=== PATIENT | female | born 1960 | race Caucasian/White ===

== ENCOUNTER → 2016-10-23 | Outpatient (CLI) | payer OTHER ==
[~2016-10-23] MED LIST: ASP81TEC PO; ASPI-999 PO; BENZ-13 PO; CETI10TA17 PO; CIPR500T4 PO; CLNZ.5T PO; CLON0.5T3 PO; CLON1TAB3 PO; CLON1TAB36 PO; CPR500T PO; D ME PO; DIPH25TA31 PO; DIVA250T2 PO; DULA0.75 SQ; FAMO-119 PO; FENO54TA PO; FENO54TA5 PO; FLUO20CA42 PO; FLX10C PO; Fluoxetine Hcl PO; GABA-490 PO; GABA800T PO; GABA800T2 PO; GBPN100C PO; GLYC30DR OU; INSASP10V SC; INSU100I14 SQ; INSU100V5 SC; LEVIMIR SQ; LIRA0.6P3 SQ; LOPE2CAP29 PO; MAGN250T PO; METF500T8 PO; METO25TA2 PO; MIRA25TA PO; MTP50T PO; MULT-974 PO; OMEP20CA12 PO; PANT40TA2 PO; PRAM0.5T4 PO; PRAM1TAB2 PO; PREG50C PO; Patients Own Medication PO; RABE20TA PO; ROPI0.25 PO; ROSU10TA12 PO; ROSU20TA14 PO; Rosuvastatin Calcium PO; SUCR1TAB PO; TELM40T PO; TRAM50TA2 PO
--- OUTSIDE RECORDS SUMMARY | 2016-10-23 10:13 | XMS REPORT ---
Author Author LACY VILLEGAS Organization [employer] Address Unknown Phone Unavailable Care Team Providers Care Special Tax Auditor Name Role Phone LACY VILLEGAS CP Unavailable Allergies No Known Allergies Problems Problem Type Condition Code Onset Dates Condition Status Problem Essential (primary) hypertension I10 Active Problem Epigastric pain R10.13 Active Problem Epigastric abdominal pain R10.13 Active Problem Influenza vaccination declined Z28.21 Active Problem Gastroenteritis and colitis, viral A08.4 Active Problem Anhedonia R45.84 Active Problem Ventral hernia without obstruction or gangrene K43.9 Active Problem Seizure disorder G40.909 Active Problem 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
--- NOTE | 2016-10-23 17:18 | Diagnostic Imaging Report ---
Bilateral screening mammogram. The current study was also evaluated with a Computer Aided Detection (CAD) system. INDICATION: Screening. No current complaints stated on the questionnaire. COMPARISON: 10/11/2015. FINDINGS: The breasts are composed of heterogeneously dense parenchyma which may decrease mammographic sensitivity. There are occasional benign-appearing calcifications. Allowing for technique and positional differences, no suspicious change is seen. IMPRESSION: Dense breasts with no definite change. ACR BI-RADS Category 2: Benign findings. Result letter will be mailed to the patient. Note: At least 10% of breast cancer is not imaged by mammography. Dictated by: Dictated on workstation # [id number]
== END ==
LOC: RAD 10:10
PROVIDERS: ATTEND Nurse Practitioner Family
DX: Z12.31 Encounter for screening mammogram for malignant neoplasm of breast (principal)
CPT/HCPCS: 77067

== ENCOUNTER 2017-01-19 09:04 | Emergency (ER) | payer SELFPAY ==
[~2017-01-19] VITALS: Ht 147.3 cm; Wt 71.2 kg
[~2017-01-19 09:04] MED LIST changes: -CIPR500T4 PO
[2017-01-19] MEDS ORDERED: NS IV 1000 ML 1,000 ML IV ONE (09:42)
[2017-01-19] MEDS ORDERED: ONDANSETRON 4 MG/2 ML (SDV) Z0FRAN ONE (09:45)
[2017-01-19] MEDS ORDERED: FAMOTIDINE 20MG/2ML IV (PEPCID) ONE (09:46)
[2017-01-19] MEDS ORDERED: FAMOTIDINE 20MG/2ML IV (PEPCID) IV STA (09:47)
[2017-01-19] MEDS ORDERED: fentaNYL INJECTION 100 MCG/2 ML AMP ONE (09:47)
[2017-01-19] MEDS ORDERED: fentaNYL INJECTION 100 MCG/2 ML AMP IVP STA ×2 (09:47→11:30)
--- NOTE | 2017-01-19 09:58 | ED Abdominal Pain ---
General Chief Complaint: Abdominal/GI Problems Stated Complaint: ABD PAIN Nursing Triage Note: PT CO OF ABD PAIN FOR APPROX 1 MONTH, PT STATES HAS PAIN FOR A MONTH AND HAS SEEN DR REARDON FOR ABD PAIN, Sepsis Screen: No Definite Risk Source of Information: Patient Exam Limitations: No Limitations History of Present Illness Time Seen By Provider: 09:30 Timing/Duration: Intermittent, Other (one month) Severity/Quality: Moderate Location: [facility] Radiation: No Radiation Activities at Onset: None Modifying Factors: Worsens With Eating, Worsens With Movement, Worsens With Palpation, Worsens With Urinating Associated Symptoms: No Back Pain, No Chest Pain, No Fever/Chills, Nausea/ Vomiting, Swelling/Mass in Abdomen, No Weakness Allergies and Home Medications Allergies Coded Allergies: Penicillins (Verified Adverse Reaction, Mild, 12/31/12) Home Medications Aspirin 81 Mg Tab.chew, 81 MG PO DAILY, (Reported) Divalproex Sodium 250 Mg Tablet.dr, 250 MG PO BID, (Reported) Dulaglutide 0.75 Mg/0.5 Ml Pen.injctr, 0.75 MG SQ EVERY THURSDAY, (Reported) Fenofibrate 54 Mg Tablet, 54 MG PO DAILY, (Reported) Fluoxetine HCl 20 Mg Capsule, 20 MG PO DAILY, (Reported) Gabapentin 800 Mg Tablet, 800 MG PO TID, (Reported) Insulin Aspart 10 Unit/0.1 Ml Susp, 35 UNIT SC TIDAC, (Reported) Insulin Detemir 100 Unit/1 Ml Vial, 80 UNIT SC BID, (Reported) Magnesium 250 Mg Tablet, 250 MG PO BID, (Reported) Metformin Hcl 500 Mg Tab.sr.24h, 1,000 MG PO BID, (Reported) TAKES 2 (500MG) TABLETS Mirabegron 25 Mg Tab.er.24h, 25 MG PO DAILY, (Reported) Multivitamin 1 Each Tablet, 1 EACH PO DAILY, (Reported) Pantoprazole Sodium 40 Mg Tablet.dr, 40 MG PO DAILY, #90 take Protonix 40 mg twice a day by mouth for 2 weeks and then after that take Protonix 40 mg once a day by mouth Prescribed by: MARK BUSBY NWBEHZAD on 02/05/16 1130 Pramipexole Di-HCl 1 Mg Tablet, 1 MG PO HS, (Reported) Sucralfate 1 Gm Tablet, 1 GM PO TIDAC, (Reported) Telmisartan 40 Mg Tab, 40 MG PO DAILY, (Reported) Review of Systems Constitutional: see HPI, No chills, No fever EENTM: No Symptoms Reported Respiratory: No Symptoms Reported Cardiovascular: No Symptoms Reported Gastrointestinal: Abdominal Pain, Denies Constipated, Denies Diarrhea, Nausea, Denies Vomiting Genitourinary: No Symptoms Reported Musculoskeletal: no symptoms reported Skin: no symptoms reported All Other Systems Reviewed Negative Unless Noted: Yes Past Miqmvsz-Sckxel-Tbqpgh Hx Patient Social History Alcohol Use: Denies Use Recreational Drug Use: No Smoking Status: Never a Smoker Recent Foreign Travel: No Contact w/Someone Who Travel: No Recent Infectious Disease Expo: No Immunizations Up To Date Tetanus Booster (TDap): Less than 5yrs PED Vaccines UTD: Yes Date of Pneumonia Vaccine: Nov 26, 2012 Date of Influenza Vaccine: Sep 21, 2012 Seasonal Allergies Seasonal Allergies: No Surgeries HX Surgeries: Yes ( X 2) Respiratory Hx Respiratory Disorders: No Cardiovascular Hx Cardiac Disorders: No Neurological Hx Neurological Disorders: Yes ("HEADACHE SYNDROMES" PER [facility] RECORDS) Reproductive System Hx Reproductive Disorders: Yes (hysterectomy) SENIOR PROGRAM ANALYST History: Hysterectomy Genitourinary Hx Genitourinary Disorders: No Gastrointestinal Hx Gastrointestinal Disorders: No Musculoskeletal Hx Musculoskeletal Disorders: No Endocrine Hx Endocrine Disorders: Yes Endocrine Disorders: Diabetes, Insulin dep HEENT HX ENT Disorders: Yes (wears glasses ) HEENT Disorders: Cataract Cancer Hx Cancer: No Psychosocial Hx Psychiatric Problems: Yes Behavioral Health Disorders: Anxiety, Depression Integumentary HX Skin/Integumentary Disorder: Yes (left axilla boil) Blood Transfusions Hx Blood Disorders: No Reviewed Nursing Assessment Reviewed/Agree w Nursing PMH: Yes Family Medical History Family Medial History: Diabetes mellitus Hypertension Neoplasm Physical Exam Vital Signs VS - Last 72 Hours, by Label 01/19/17 01/19/17 09:10 10:57 Temp 96.9 96.9 Pulse 103 103 Resp 18 18 B/P (MAP) 158/82 Pulse Ox 97 97 Capillary Refill : Less Than 3 Seconds General Appearance: WD/WN, no apparent distress HEENT: PERRL/EOMI, pharynx normal Neck: full range of motion, supple Respiratory: lungs clear, normal breath sounds Cardiovascular: regular rate, rhythm, no murmur Gastrointestinal: non tender, soft Extremities: non-tender, normal inspection Back: normal inspection, no CVA tenderness, no vertebral tenderness Neurologic/Psychiatric: alert, oriented x 3 Skin: normal color, warm/dry Progress/Results/Core Measures Results/Orders Lab Results Laboratory Tests Test 01/19/17 09:30 01/19/17 10:35 Range/Units Urine Color YELLOW Urine Clarity CLEAR Urine pH 6.5 5-9 Urine Specific [place] 1.015 L 1.016-1.022 Urine Protein 1+ H NEGATIVE Urine Glucose (UA) 3+ H NEGATIVE Urine Ketones 1+ H NEGATIVE Urine Nitrite NEGATIVE NEGATIVE Urine Bilirubin NEGATIVE NEGATIVE Urine Urobilinogen NORMAL NORMAL MG/DL Urine Leukocyte Esterase 3+ H NEGATIVE Urine RBC (Auto) NEGATIVE NEGATIVE Urine RBC NONE /HPF Urine WBC 25-50 H /HPF Urine Squamous Epithelial Cells 0-2 /HPF Urine Crystals NONE /LPF Urine Bacteria FEW H /HPF Urine Casts NONE /LPF Urine Mucus NEGATIVE /LPF Urine Culture Indicated YES White Blood Count 12.2 H 4.3-11.0 10^3/uL Red Blood Count 4.52 4.35-5.85 10^6/uL Hemoglobin 11.6 11.5-16.0 G/DL Hematocrit 37 35-52 % Mean Corpuscular Volume 81 80-99 FL Mean Corpuscular Hemoglobin 26 25-34 PG Mean Corpuscular Hemoglobin Concent 32 32-36 G/DL Red Cell Distribution Width 15.1 H 10.0-14.5 % Platelet Count 290 130-400 10^3/uL Mean Platelet Volume 10.9 H 7.4-10.4 FL Neutrophils (%) (Auto) 71 42-75 % Lymphocytes (%) (Auto) 22 12-44 % Monocytes (%) (Auto) 4 0-12 % Eosinophils (%) (Auto) 3 0-10 % Basophils (%) (Auto) 0 0-10 % Neutrophils # (Auto) 8.6 H 1.8-7.8 X 10^3 Lymphocytes # (Auto) 2.7 1.0-4.0 X 10^3 Monocytes # (Auto) 0.5 0.0-1.0 X 10^3 Eosinophils # (Auto) 0.4 H 0.0-0.3 10^3/uL Basophils # (Auto) 0.0 0.0-0.1 10^3/uL Sodium Level 137 135-145 MMOL/L Potassium Level 4.8 3.6-5.0 MMOL/L Chloride Level 104 98-107 MMOL/L Carbon Dioxide Level 22 21-32 MMOL/L Anion Gap 11 5-14 MMOL/L Blood Urea Nitrogen 21 H 7-18 MG/DL Creatinine 0.77 0.60-1.30 MG/DL Estimat Glomerular Filtration Rate > 60 BUN/Creatinine Ratio 27 Glucose Level 210 H 70-105 MG/DL Calcium Level 8.7 8.5-10.1 MG/DL Magnesium Level 1.1 L 1.8-2.4 MG/DL Total Bilirubin 0.2 0.1-1.0 MG/DL Aspartate Amino Transf (AST/SGOT) 13 5-34 U/L Alanine Aminotransferase (ALT/SGPT) 15 0-55 U/L Alkaline Phosphatase 78 40-136 U/L Total Protein 7.8 6.4-8.2 G/DL Albumin 4.0 3.2-4.5 G/DL Amylase Level 47 25-125 U/L Lipase 40 8-78 U/L My Orders Orders - CASSIA GROVER MD Amylase (01/19/17 09:42) Cbc With Automated Diff (01/19/17 09:42) Comprehensive Metabolic Panel (01/19/17 09:42) Lipase (01/19/17 09:42) Magnesium (01/19/17 09:42) Ua Culture If Indicated (01/19/17 09:42) Saline Lock/Iv-Start (01/19/17 09:42) Ns Iv 1000 Ml (Sodium Chloride 0.9%) (01/19/17 09:42) Ondansetron Injection (Zofran Injectio (01/19/17 10:00) Famotidine Injection (Pepcid Injection) (01/19/17 09:47) Fentanyl Injection (Sublimaze Injection (01/19/17 09:47) Ondansetron Injection (Zofran Injectio (01/19/17 09:45) Famotidine Injection (Pepcid Injection) (01/19/17 09:46) Fentanyl Injection (Sublimaze Injection (01/19/17 09:47) Urine Culture (01/19/17 09:30) Ct Abdomen/Pelvis W (01/19/17 11:24) Iohexol Injection (Omnipaque 350 Mg/Ml 1 (01/19/17 11:30) Ns (Ivpb) (Sodium Chloride 0.9% Ivpb Bag (01/19/17 11:30) Fentanyl Injection (Sublimaze Injection (01/19/17 11:30) Medications Given in ED Current Medications Medications Dose Ordered Sig/Cb Route Start Time Stop Time Status Last Admin Dose Admin Iohexol 100 ml ONCE ONCE IV 01/19/17 11:30 01/19/17 11:34 DC 01/19/17 11:39 100 ML Ondansetron HCl 4 mg ONCE ONCE IVP 01/19/17 10:00 01/19/17 10:01 DC 01/19/17 09:52 4 MG Sodium Chloride 100 ml ONCE ONCE IV 01/19/17 11:30 01/19/17 11:34 DC 01/19/17 11:39 80 ML Sodium Chloride 1,000 ml @ 0 mls/hr Q0M ONCE IV 01/19/17 09:42 01/19/17 09:43 DC 01/19/17 09:54 1,000 MLS/HR Vital Signs/I&O Vital Sign - Last 12Hours 01/19/17 01/19/17 09:10 10:57 Temp 96.9 96.9 Pulse 103 103 Resp 18 18 B/P (MAP) 158/82 Pulse Ox 97 97 Blood Pressure Mean: 107 Progress Note : Progress Note Seen and evaluated. IV, labs, UA, normal saline 1 L bolus, fentanyl 50 g IV, Zofran 4 mg IV and Pepcid 20 mg IV ordered. Anticipate CT abdomen and pelvis. Monitor patient. CT scan ordered. Patient required repeat dosing of fentanyl 75 g IV for pain. This did help but her pain. 1215: CT results noted. No acute findings. Overall no significant findings except for question of urinary tract infection. We will treat this. She needs to follow up with her DrJayesh for further evaluation including potentially surgical referral. This is discussed with patient and family who agree. Discharged home with return precautions. Patient and family verbalize understanding instructions and agreement with plan. Diagnostic Imaging Diagonstic Imaging: CT Plain Films/CT/US/NM/MRI: abdomen, pelvis Comments NAME: [facility]HELLE D [facility] REC#: [id number] PT STATUS: REG ER : 1960 PHYSICIAN: CASSIA GROVER MD ADMIT DATE: 01/19/17/ER Draft Date of Exam:01/19/17 CT ABDOMEN/PELVIS W PROCEDURE: CT abdomen and pelvis with contrast. TECHNIQUE: Multiple contiguous axial images were obtained through the abdomen and pelvis after administration of intravenous contrast. INDICATION: Upper abdominal pain and swelling. 100 mL of Omnipaque 350 administered intravenously. FINDINGS: The lung bases appear clear. The liver demonstrates mild diffuse steatosis. There is biliary air seen similar to 01/28/2016, exam, probably related to prior sphincterotomy. Cholecystectomy clips are seen. The pancreas, the spleen, and the adrenal glands appear unremarkable. The kidneys have symmetric enhancement and contrast excretion. There is no hydronephrosis. The abdominal aorta is normal in caliber. No para-aortic significantly enlarged lymph node is seen. No significant free fluid or fluid collection in the abdomen or pelvis is noted. There is suggestion of prior hysterectomy. Surgical clips in the left lower quadrant and left side of the pelvis seen. The urinary bladder appears unremarkable. Borderline-sized inguinal lymph nodes of uncertain significance are noted. There is a tiny fat-containing supraumbilical hernia seen. The osseous structures demonstrate degenerative changes at the SI joints. IMPRESSION: Tiny fat-containing supraumbilical hernia. Mild hepatic steatosis. Dictated on workstation # [id number] Dict: 01/19/17 1159 Trans: 01/19/17 [id number] [id number] Interpreted by: JOSEPHINE GOMEZ MD Electronically signed by: Departure Impression Impression: Primary Impression: Epigastric abdominal pain Additional Impression: Urinary tract infection Qualified Codes: N30.00 - Acute cystitis without hematuria Disposition: HOME, SELF-CARE Condition: Stable Departure-Patient Inst. Decision time for Depature: 12:21 [facility]: [facility] Primary Care Physician Patient Instructions: Acute Abdomen (Belly Pain), Adult (DC), Urinary Tract Infection, Adult (DC) Add. Discharge Instructions: All discharge instructions reviewed with patient and/or family. Voiced understanding. Take medications as directed. Follow-up with your doctor this week for recheck and further evaluation. Call today for appointment. You should follow-up with your surgeon as well for recheck and further evaluation including endoscopy ( scope) as needed. You may talk with your doctor about this as well for referral. Clear liquid diet for 24 hours and then advance as tolerated. Return for worse pain, fever, vomiting, weakness, breathing problems, blood in your vomit or stool or other concerns as needed. Scripts Tramadol HCl (Tramadol HCl) 50 Mg Tablet 50 MG PO Q6H Y for PAIN, #20 TAB 0 Refills Prov: CASSIA GROVER MD 01/19/17 Ciprofloxacin HCl (Ciprofloxacin HCl) 500 Mg Tablet 500 MG PO BID, #14 TAB Prov: CASSIA GROVER MD 01/19/17 Copy Copies To 1: ANDREZ KEITA TIMOTHY D MD January 19, 2017 09:57
[2017-01-19] MEDS ORDERED: ONDANSETRON 4 MG/2 ML (SDV) Z0FRAN IVP ONE (10:00)
[2017-01-19 10:02] LABS: BILIRUBIN,URINE NEGATIVE (NEGATIVE); KETONES,URINE 1+ (NEGATIVE); LEUKOCYTE ESTERASE ,URINE 3+ (NEGATIVE); NITRITE,URINE NEGATIVE (NEGATIVE); PH,URINE 6.5 (5-9); PROTEIN,URINE 1+ (NEGATIVE); UROBILINOGEN,URINE NORMAL (NORMAL)
[2017-01-19 10:20] LABS: SQUAMOUS EPITHELIAL CELL,UR 0-2 /HPF; WBC,URINE 25-50 /HPF
[2017-01-19 10:49] LABS: BASOPHILS % (AUTO) 0 % (0-10); EOSINOPHILS # (AUTO) 0.4 10^3/uL (0.0-0.3); EOSINOPHILS % (AUTO) 3 % (0-10); LYMPHOCYTES # (AUTO) 2.7 X 10^3 (1.0-4.0); LYMPHOCYTES % (AUTO) 22 % (12-44); MEAN CORPUSCULAR HEMOGLOBIN 26 PG (25-34); MEAN CORPUSCULAR HGB CONC 32 G/DL (32-36); MEAN CORPUSCULAR VOLUME 81 FL (80-99); MEAN PLATELET VOLUME 10.9 FL (7.4-10.4); MONOCYTES # (AUTO) 0.5 X 10^3 (0.0-1.0); MONOCYTES % (AUTO) 4 % (0-12); NEUTROPHILS # (AUTO) 8.6 X 10^3 (1.8-7.8); NEUTROPHILS % (AUTO) 71 % (42-75); PLATELET COUNT 290 10^3/uL (130-400); RED BLOOD COUNT 4.52 10^6/uL (4.35-5.85); RED CELL DISTRIBUTION WIDTH 15.1 % (10.0-14.5); WHITE BLOOD COUNT 12.2 10^3/uL (4.3-11.0)
[2017-01-19 10:57] VITALS: BP 137/61
[2017-01-19 11:08] LABS: ALANINE AMINOTRANSFERASE 15 U/L (0-55); AMYLASE 47 U/L (25-125); ANION GAP 11 MMOL/L (5-14); ASPARTATE AMINO TRANSFERASE 13 U/L (5-34); BILIRUBIN,TOTAL 0.2 MG/DL (0.1-1.0); BLOOD UREA NITROGEN 21 MG/DL (7-18); BUN/CREATININE RATIO 27; CALCIUM 8.7 MG/DL (8.5-10.1); CARBON DIOXIDE 22 MMOL/L (21-32); CHLORIDE 104 MMOL/L (98-107); CREATININE SERUM 0.77 MG/DL (0.60-1.30); GFR ESTIMATED > 60; GLUCOSE 210 MG/DL (70-105); LIPASE 40 U/L (8-78); MAGNESIUM 1.1 MG/DL (1.8-2.4); POTASSIUM 4.8 MMOL/L (3.6-5.0); SODIUM 137 MMOL/L (135-145); TOTAL PROTEIN 7.8 G/DL (6.4-8.2)
[2017-01-19] MEDS ORDERED: NS 100 ML (IVPB) BAG IV ONE (11:30)
[2017-01-19] MEDS ORDERED: IOHEXOL 350 MG/ML 100 ML (OMNIPAQUE 350) VIAL IV ONE (11:30)
--- NOTE | 2017-01-19 12:07 | Diagnostic Imaging Report ---
PROCEDURE: CT abdomen and pelvis with contrast. TECHNIQUE: Multiple contiguous axial images were obtained through the abdomen and pelvis after administration of intravenous contrast. INDICATION: Upper abdominal pain and swelling. 100 mL of Omnipaque 350 administered intravenously. FINDINGS: The lung bases appear clear. The liver demonstrates mild diffuse steatosis. There is biliary air seen similar to 01/28/2016, exam, probably related to prior sphincterotomy. Cholecystectomy clips are seen. The pancreas, the spleen, and the adrenal glands appear unremarkable. The kidneys have symmetric enhancement and contrast excretion. There is no hydronephrosis. The abdominal aorta is normal in caliber. No para-aortic significantly enlarged lymph node is seen. No significant free fluid or fluid collection in the abdomen or pelvis is noted. There is suggestion of prior hysterectomy. Surgical clips in the left lower quadrant and left side of the pelvis seen. The urinary bladder appears unremarkable. Borderline-sized inguinal lymph nodes of uncertain significance are noted. There is a tiny fat-containing supraumbilical hernia seen. The osseous structures demonstrate degenerative changes at the SI joints. IMPRESSION: Tiny fat-containing supraumbilical hernia. Mild hepatic steatosis. Dictated by: Dictated on workstation # [id number]
[2017-01-19] MEDS ORDERED: CIPR500T4 PO (12:23)
[2017-01-19] MEDS ORDERED: TRAM50TA2 PO (12:23)
== END 2017-01-19 12:47 | disposition home or self-care (01) ==
LOC: EDUNIT# 09:04 → ER 09:07
DX: R10.13 Epigastric pain (principal); N39.0 Urinary tract infection, site not specified; K42.9 Umbilical hernia without obstruction or gangrene; E11.9 Type 2 diabetes mellitus without complications; Z79.82 Long term (current) use of aspirin; Z79.4 Long term (current) use of insulin; Z79.899 Other long term (current) drug therapy; Z90.49 Acquired absence of other specified parts of digestive tract
CPT/HCPCS: 36415; 74177; 80053; 81000; 82150; 83690; 83735; 85025; 87088; 96374; 96375; 96376

== ENCOUNTER → 2020-03-29 | Outpatient (CLI) | payer OTHER ==
[~2020-03-29] MED LIST changes: +CIPR500T4 PO; +GABA800T10 PO; -GABA800T2 PO; -MAGN250T PO; +MAGN250T2 PO; +TRM50T PO
--- NOTE | 2020-03-29 16:16 | Diagnostic Imaging Report ---
INDICATION: Routine screening. COMPARISON is made with prior mammograms from 10/23/2016 and 10/11/2015. 2-D and 3-D bilateral screening mammography was performed with CAD. Both breasts are heterogeneously dense, limiting the sensitivity of mammography. The parenchymal pattern is stable. No dominant mass or malignant appearing microcalcifications are seen. Axillae are unremarkable. IMPRESSION: BI-RADS Category 1 No mammographic features suspicious for malignancy are identified. Dictated by: Dictated on workstation # [id number]
== END ==
LOC: RAD 09:30
PROVIDERS: ATTEND Nurse Practitioner Family
DX: Z12.31 Encounter for screening mammogram for malignant neoplasm of breast (principal)
CPT/HCPCS: 77063; 77067

== ENCOUNTER → 2021-03-11 | Outpatient (CLI) | payer OTHER ==
[~2021-03-11] MED LIST changes: -CIPR500T4 PO; +CIPR500T5 PO
--- NOTE | 2021-03-11 13:49 | Diagnostic Imaging Report ---
INDICATION: Bilateral breast lumps in the axillary regions. Correlation is made prior mammograms of 06/10/2020 and 11/10/2016. 2-D and 3-D bilateral diagnostic mammography was performed with CAD. Both breasts are heterogeneously dense, limiting sensitivity of mammography. No mass or malignant appearing microcalyx locations are seen. There are benign calcifications bilaterally. There are fatty lymph nodes in the axilla bilaterally. IMPRESSION: BI-RADS 0 No mammographic features suspicious for malignancy are identified. There are fatty lymph nodes in the axillary regions bilaterally which may account for the palpable abnormalities. Even so, sonographic interrogation of the areas of palpable abnormality bilaterally is recommended and will be performed today. ACR BI-RADS Category 0: Incomplete. (Needs additional imaging evaluation). Result letter will be mailed to the patient. Note: At least 10% of breast cancer is not imaged by mammography. Dictated by: Dictated on workstation # [id number]
--- NOTE | 2021-03-11 14:36 | Diagnostic Imaging Report ---
INDICATION: Palpable lumps in the bilateral axilla. COMPARISON: Correlation is made with the diagnostic mammogram from earlier this same day. FINDINGS: Sonographic interrogation of the areas of palpable abnormality in the axilla bilaterally was performed. There are multiple prominent fatty lymph nodes in the axilla bilaterally corresponding with the diagnostic mammogram. The largest lymph node on the right measures 4.5 x 1.8 x 2.8 cm and the largest lymph node on the left measures 3.6 x 2.2 x 3.0 cm. No suspicious sonographic finding is identified. IMPRESSION: There are enlarged fatty replaced lymph nodes in the axilla bilaterally likely accounting for the palpable abnormalities. ACR BI-RADS Category 2: Benign findings. Dictated by: Dictated on workstation # [id number]
== END ==
LOC: RAD 13:15
PROVIDERS: ATTEND Nurse Practitioner Family
DX: N63.32 Unspecified lump in axillary tail of the left breast (principal); N63.31 Unspecified lump in axillary tail of the right breast; R59.0 Localized enlarged lymph nodes
CPT/HCPCS: 76642; 77066; G0279; 77062